=== PATIENT | male | born 1995 | race African-American/Black ===

== ENCOUNTER 2021-06-19 16:24 | Emergency (ER) | payer OTHER ==
[~2021-06-19] VITALS: Ht 167.6 cm; Wt 68.0 kg
== END 2021-06-19 20:37 | disposition home or self-care (01) ==
LOC: ER 16:24
DX: R63.8 Other symptoms and signs concerning food and fluid intake (principal); R19.7 Diarrhea, unspecified; Z20.822 Contact with and (suspected) exposure to COVID-19